=== PATIENT | female | born 2000 | race Hispanic/Latino ===

== ENCOUNTER 2020-06-01 13:40 | Emergency (ER) | payer SELFPAY ==
[2020-06-01 14:54] LABS: #Lymphocytes 0.9 thou/uL (1.20-3.40); #Monocytes 1.6 thou/uL (0.11-0.59); #Neutrophils 13.6 thou/uL (1.40-6.50); %Basophils 0.1 % (0.0-1.0); %Eosinophils 0.1 % (0.0-10.0); %Lymphocytes 5.5 % (28.0-48.0); %Monocytes 9.7 % (0.0-4.0); %Neutrophils 84.6 % (31.0-61.0); Hemoglobin 11.7 g/dL (12.0-16.0); Mean Corpuscular HGB CONC 33.8 g/dL (32.0-36.0); Mean Corpuscular Hemoglobin 31.6 pg (25.0-35.0); Mean Corpuscular Volume 93.3 fL (78.0-98.0); Mean Platelet Volume 8.5 fL (7.4-10.4); Platelet Count 240 thou/uL (130-400); RBC Distribution Width 11.5 % (11.5-14.5); White Blood Cell (WBC) Count 16.1 thou/uL (4.8-10.8)
[2020-06-01 15:00] LABS: BHCG - Serum POSITIVE (NEGATIVE); Pregs Control Background? CLEAR/WHITE (CLR/WHITE); Pregs Control Bar Appear? YES (CONTROL BAR)
[2020-06-01 15:10] LABS: ALT (SGPT) 122 U/L (8-55); AST (SGOT) 67 U/L (5-34); Albumin 3.8 g/dL (3.5-5.0); Alkaline Phosphatase 142 U/L (40-100); Anion Gap 14 mmol/L (10-20); BUN (Urea Nitrogen) 6 mg/dL (7.0-18.7); Bilirubin, Total 3.1 mg/dL (0.2-1.2); Calc. Creatinine Clearance 0 mL/min (70-130); Calcium 9.1 mg/dL (7.8-10.44); Carbon Dioxide 21 mmol/L (22-29); Chloride 102 mmol/L (98-107); Globulin 3.6 g/dL (2.4-3.5); Glucose 118 mg/dL (70-105); Potassium 3.7 mmol/L (3.5-5.1); Protein, Total 7.4 g/dL (6.0-8.3); Sodium 133 mmol/L (136-145)
[2020-06-01] MEDS ORDERED: Vancomycin 1 GM/200 ML BAG ONE (15:28)
[2020-06-01] MEDS ORDERED: Cefepime 2 GM VIAL ONE (15:28)
[2020-06-01] MEDS ORDERED: Morphine 4 MG/ML VIAL ONE (15:28)
[2020-06-01] MEDS ORDERED: Ondansetron PF 4 MG/2 ML Vial ONE (15:28)
[2020-06-01 15:30] LABS: Bilirubin 2+ (Negative); Blood, Urine Negative (Negative); Clarity Clear (Clear); Glucose, Urine (Dipstick) 200 mg/dL (Negative); Ketone, Urine 20 mg/dL (Negative); Leukocyte 250 Leu/uL (Negative); Nitrite Negative (Negative); Protein, Urine (Dipstick) 50 mg/dL (Neg-Trace); RBC/HPF 0-3 HPF (0-3); Specific Gravity, Urine 1.023 (1.002-1.036); Squamous Epithelial 0-3 HPF (0-3); Urobilinogen Greater than 12 mg/dL (Less than 2)
[2020-06-01 15:31] LABS: Bacteria/HPF 1+ HPF (None Seen)
--- NOTE | 2020-06-01 18:24 | RAD ---
PORTABLE CHEST: 06/01/20 HISTORY: Shortness of breath, flank pain. The lungs are clear. Heart and mediastinum appear normal. Osseous structures appear normal. IMPRESSION: No acute findings. POS: AGW
--- NOTE | 2020-06-01 19:51 | ULT ---
PELVIC ULTRASOUND/OB ULTRASOUND LIMITED: 06/01/20 INDICATIONS: Left pelvic pain. FINDINGS: There is a single viable intrauterine identified. Yolk sac is identified. pole is billy ntified. Logan-rump length indicates a 10 week, 4 day gestational age. The gestational sac appears no rmal. No evidence of subchorionic hemorrhage. The heart rate is recorded at 175 beats per minute. Neither maternal ovary identified. IMPRESSION: Viable intrauterine with crown-rump length indicating a 10 week, 1 day gestational age. No abnormality identified. POS: AGW
[2020-06-03 13:03] LABS: Chlamydia by PCR Not Detected (NotDetected); GC by PCR Not Detected (NotDetected)
== END 2020-06-01 19:56 | disposition short-term general hospital (02) ==
LOC: ERS 13:40
DX: O98.811 Other maternal infectious and parasitic diseases complicating pregnancy, first trimester (principal); A41.9 Sepsis, unspecified organism; O23.01 Infections of kidney in pregnancy, first trimester; O26.611 Liver and biliary tract disorders in pregnancy, first trimester; Z3A.10 10 weeks gestation of pregnancy
CPT/HCPCS: 36415; 71045; 76815; 80053; 81003; 81015; 83605; 83690; 84702; 84703; 85025; 86850; 86900; 86901; 87040; 87086; 87480; 87491; 87510; 87591; 87660; 93005; 96365; 96375; J0692; J2270; J2405; J3370